=== PATIENT | female | born 1990 | race Caucasian/White ===

== ENCOUNTER 2024-02-01 15:20 | Emergency (ER) | payer BC ==
--- NOTE | 2024-02-01 15:28 | ERPHSYRPT ---
- History of Present Illness Time Seen by Provider: 02/01/24 16:00 Historian: patient Exam Limitations: no limitations Physician History: Patient here for evaluation of chest pain that has been getting worse for the past 2 weeks she states it is worse today and persisted so she decided to come in for evaluation she denies any fevers or chills or hemoptysis she denies any Recent travel she denies any Recent travel she denies any trauma or abuse Timing/Duration: today Activities at Onset: none Chest Pain Radiation: no radiation Severity of Pain-Max: mild Severity of Pain-Current: mild Modifying Factors: Improves With: nothing Associated Symptoms: denies symptoms Prior Chest Pain/Cardiac Workup: no prior chest pain Nitro Today/Relief: no nitro taken today Aspirin Treatment Today: no aspirin today Allergies/Adverse Reactions: morphine Allergy (Verified 02/01/24 15:22) Home Medications: No Reportable Medications [No Reported Medications] 02/01/24 [History] - Review of Systems Eyes: No Symptoms Ears, Nose, & Throat: No Symptoms Respiratory: No Symptoms, Stridor Abdominal/Gastrointestinal: No Symptoms Genitourinary Symptoms: No Symptoms Musculoskeletal: No Symptoms Skin: No Symptoms Neurological: No Symptoms Psychological: No Symptoms Endocrine: No Symptoms Hematologic/Lymphatic: No Symptoms Immunological/Allergic: No Symptoms - Past Medical History Neurological History: No Pertinent History ENT History: No Pertinent History Cardiac History: No Pertinent History Respiratory History: No Pertinent History Endocrine Medical History: No Pertinent History Musculoskeletal History: No Pertinent History GI Medical History: No Pertinent History History: No Pertinent History Psycho-Social History: No Pertinent History - Female History Hx Now: No - Nursing Vital Signs Nursing Vital Signs: Initial Vital Signs Pulse Rate 76 02/01/24 15:30 Respiratory Rate 28 H 02/01/24 15:30 Blood Pressure 115/80 02/01/24 15:30 O2 Sat by Pulse Oximetry 95 02/01/24 15:30 Pain Scale Pain Intensity 0 - Physical Exam General Appearance: no apparent distress Eye Exam: PERRL/EOMI Ears, Nose, Throat Exam: normal ENT inspection Neck Exam: normal inspection Respiratory Exam: normal breath sounds Cardiovascular Exam: regular rate/rhythm Gastrointestinal/Abdomen Exam: soft Pelvic Exam: not done Extremity Exam: normal inspection Neurologic Exam: alert, oriented x 3 Ordered Tests: Active Orders 24 hr Category Date Time Status CHEST 1 VIEW (PORTABLE) Stat Exams 02/01/24 15:24 Completed CHEST WITH CONTRAST [CT] Stat Exams 02/01/24 16:28 Completed CBC W DIFF Stat Lab 02/01/24 15:35 Completed CK-Creatinine Phosphokinase Stat Lab 02/01/24 15:35 Completed CMP Stat Lab 02/01/24 15:35 Completed D-DIMER QUANTITATIVE Stat Lab 02/01/24 15:35 Completed HCG QUALITATIVE, SERUM Stat Lab 02/01/24 15:35 Completed TROPONIN Q4H Lab 02/01/24 15:35 Completed TROPONIN Q4H Lab 02/01/24 18:30 Completed TROPONIN Q4H Lab 02/01/24 23:30 Ordered Lab/Rad Data: Laboratory Result Diagrams 02/01/24 15:35 02/01/24 15:35 Laboratory Results 02/01/24 02/01/24 02/01/24 Range/Units 18:30 15:35 15:35 WBC (3.98-10.04) x10^3/uL RBC (3.93-5.22) x10^6/uL Hgb (11.2-15.7) g/dL Hct (34.1-44.9) % MCV (79.4-94.8) fL MCH (25.6-32.2) pg MCHC (32.2-35.5) g/dL RDW (11.7-14.4) % Plt Count (182-369) x10^3/uL MPV (9.4-12.3) fL Gran % (34.0-71.1) % Immature Gran % (Auto) (0.001-0.429) % Nucleat RBC Rel Count (0.00-0.2) % Eos # (Auto) (0.04-0.36) x10^3/uL Immature Gran # (Auto) (0.001-0.031) x10^3u/L Absolute Lymphs (auto) (1.18-3.74) x10^3/uL Absolute Monos (auto) (0.24-0.86) x10^3/uL Absolute Nucleated RBC (0.00-0.012) x10^3u/L Lymphocytes % (19.3-51.7) % Monocytes % (4.7-12.5) % Eosinophils % (0.7-5.8) % Basophils % (0.1-1.2) % Absolute Granulocytes (1.56-6.13) x10^3/uL Basophils # (0.01-0.08) x10^3/uL D-Dimer (0.0-0.50) mg/L Sodium (135-145) mmol/L Potassium (3.5-5.1) mmol/L Chloride (98-107) mmol/L Carbon Dioxide (22-30) mmol/L Anion Gap (5-15) MEQ/L BUN (7-17) mg/dL Creatinine (0.52-1.04) mg/dL Estimated GFR ML/MIN Glucose (74-106) mg/dL Calcium (8.4-10.2) mg/dL Total Bilirubin (0.2-1.3) mg/dL AST (14-36) U/L ALT (0-35) U/L Alkaline Phosphatase (38-126) U/L Creatine Kinase (30-135) U/L Troponin I < 0.012 < 0.012 (0.000-0.033) ng/mL Serum Total Protein (6.3-8.2) g/dL Albumin (3.5-5.0) g/dL Serum HCG, Qual NEGATIVE (NEGATIVE) 02/01/24 02/01/24 02/01/24 Range/Units 15:35 15:35 15:35 WBC 6.0 (3.98-10.04) x10^3/uL RBC 4.93 (3.93-5.22) x10^6/uL Hgb 13.7 (11.2-15.7) g/dL Hct 43.3 (34.1-44.9) % MCV 87.8 (79.4-94.8) fL MCH 27.8 (25.6-32.2) pg MCHC 31.6 L (32.2-35.5) g/dL RDW 13.0 (11.7-14.4) % Plt Count 288 (182-369) x10^3/uL MPV 10.3 (9.4-12.3) fL Gran % 40.3 (34.0-71.1) % Immature Gran % (Auto) 0.3 (0.001-0.429) % Nucleat RBC Rel Count 0.0 (0.00-0.2) % Eos # (Auto) 0.11 (0.04-0.36) x10^3/uL Immature Gran # (Auto) 0.02 (0.001-0.031) x10^3u/L Absolute Lymphs (auto) 2.95 (1.18-3.74) x10^3/uL Absolute Monos (auto) 0.45 (0.24-0.86) x10^3/uL Absolute Nucleated RBC 0.00 (0.00-0.012) x10^3u/L Lymphocytes % 49.3 (19.3-51.7) % Monocytes % 7.5 (4.7-12.5) % Eosinophils % 1.8 (0.7-5.8) % Basophils % 0.8 (0.1-1.2) % Absolute Granulocytes 2.40 (1.56-6.13) x10^3/uL Basophils # 0.05 (0.01-0.08) x10^3/uL D-Dimer < 0.19 (0.0-0.50) mg/L Sodium 137 (135-145) mmol/L Potassium 4.2 (3.5-5.1) mmol/L Chloride 104 (98-107) mmol/L Carbon Dioxide 23 (22-30) mmol/L Anion Gap 14.0 (5-15) MEQ/L BUN 17 (7-17) mg/dL Creatinine 0.75 (0.52-1.04) mg/dL Estimated GFR 107.7 ML/MIN Glucose 103 (74-106) mg/dL Calcium 9.5 (8.4-10.2) mg/dL Total Bilirubin 1.00 (0.2-1.3) mg/dL AST 23 (14-36) U/L ALT 21 (0-35) U/L Alkaline Phosphatase 58 (38-126) U/L Creatine Kinase 40 (30-135) U/L Troponin I (0.000-0.033) ng/mL Serum Total Protein 7.6 (6.3-8.2) g/dL Albumin 4.7 (3.5-5.0) g/dL Serum HCG, Qual (NEGATIVE) - Progress Progress: re-examined Air Movement: good Progress Note: Patient was seen and evaluated for chest pain labs were obtained initial troponin is within normal limits CT of the chest was obtained due to the pat ient's history this was within normal limits she was informed of the need for repeat cardiac enzymes which are normal and the need for follow-up with her primary care provider and gastroeneterologist 02/01/24 18:42 02/01/24 19:11 - Departure Departure Disposition: Home Clinical Impression: Chest pain Condition: Stable Critical Care Time: No Referrals: NARAYAN FERNANDEZ NP [NON-STAFF PHY W/O PRIVILEGES] - Follow up/PCP as directed Instructions: Angina (DC), Chest Pain (DC)
[2024-02-01 15:44] VITALS: TEMP 97.9
[2024-02-01 15:48] LABS: BASOPHIL % 0.8 % (0.1-1.2); Basophil (Absolute #) 0.05 x10^3/uL (0.01-0.08); Eosinophil % 1.8 % (0.7-5.8); Eosinophil (Absolute #) 0.11 x10^3/uL (0.04-0.36); Hematocrit 43.3 % (34.1-44.9); Hemoglobin 13.7 g/dL (11.2-15.7); IMMATURE GRAN # 0.02 x10^3u/L (0.001-0.031); IMMATURE GRAN % 0.3 % (0.001-0.429); Lymphocyte (Absolute #) 2.95 x10^3/uL (1.18-3.74); Lymphocytes % 49.3 % (19.3-51.7); Mean Cell Volume 87.8 fL (79.4-94.8); Mean Corpuscular Hemoglobin 27.8 pg (25.6-32.2); Mean Corpuscular Hgb Concent. 31.6 g/dL (32.2-35.5); Mean Platelet Volume 10.3 fL (9.4-12.3); Monocyte (Absolute #) 0.45 x10^3/uL (0.24-0.86); Monocytes % 7.5 % (4.7-12.5); Neutrophil % 40.3 % (34.0-71.1); Platelet Count 288 x10^3/uL (182-369); Red Blood Count 4.93 x10^6/uL (3.93-5.22)
[2024-02-01 16:05] LABS: ALBUMIN 4.7 g/dL (3.5-5.0); Calcium 9.5 mg/dL (8.4-10.2); Creatinine 1 0.75 mg/dL (0.52-1.04); EST GLOMERULAR FILTRATION RATE 107.7 ML/MIN; Potassium 4.2 mmol/L (3.5-5.1); Total Protein 7.6 g/dL (6.3-8.2)
[2024-02-01 16:08] LABS: HCG SERUM TEST NEGATIVE (NEGATIVE)
[2024-02-01 16:25] VITALS: O2SAT 96
--- NOTE | 2024-02-01 16:43 | XRAY ---
Indication: Chest pain. Comparison: None Portable chest demonstrates normal heart, lungs, and bony thorax.
--- NOTE | 2024-02-01 17:19 | XRAY ---
Indication: Chest pain. Multiple contiguous axial images obtained through the chest using 80 cc Isovue 370 contrast and PE protocol. Comparison: None Good opacification pulmonary arteries to include the lobar and segmental branches. No pulmonary embolus. Heart not enlarged. Aorta normal in course and caliber. No pathologic mediastinal/hilar lymphadenopathy. Lungs inflated and clear. Bony thorax intact. Limited upper abdomen including adrenal glands unremarkable. Impression: Normal CT chest pulmonary embolus exam.
[2024-02-01 17:27] VITALS: BP 102/87; PULSE 65; RESP 20
== END 2024-02-01 19:24 | disposition home or self-care (01) ==
LOC: ED 15:20
DX: R07.9 Chest pain, unspecified (principal)
CPT/HCPCS: 36000; 36415; 71045; 71260; 80053; 82550; 84484; 84703; 85025; 85379; 93005; 99284